=== PATIENT | female | born 1950 | race Caucasian/White ===

== ENCOUNTER 2020-10-28 10:49 | Outpatient (REF) | payer MEDICARE, SELFPAY ==
[2020-10-29 08:38] LABS: Lyme Abs Screen <0.90 index
== END 2020-10-28 10:50 | disposition home or self-care (01) ==
LOC: HO.MANLDS 10:49
PROVIDERS: PCP Physician Assistant; Visit Provider Physician Assistant
DX: T14.8XXA Other injury of unspecified body region, initial encounter (principal)
CPT/HCPCS: 86618

== ENCOUNTER 2021-06-10 13:54 | Outpatient (REF) | payer MEDICARE, SELFPAY ==
[2021-06-10 16:46] LABS: MANUAL DIFF FLAG NO
[2021-06-10 16:49] LABS: Basophils Percent Auto 0.3 % (0-2); Eosinophils Absolute Auto 0.2 X10*3/uL (0.0-0.4); Eosinophils Percent Auto 1.7 % (0-4); Hematocrit 39.7 % (37-47); Hemoglobin 13.2 g/dl (12.0-16.0); Imm Gran Abs Auto 0.01 X10*3/uL (0.00-0.03); Imm Gran Pct Auto 0.1 % (0.0-0.4); Lymphocytes Absolute Auto 2.8 X10*3/uL (1.2-4.9); Lymphocytes Percent Auto 32.5 % (20-40); Mean Corpuscular HGB Conc 33.2 g/dl (31.0-35.0); Mean Corpuscular Hemoglobin 30.7 pg (27.0-33.0); Mean Corpuscular Volume 92.3 fL (80-98); Mean Platelet Volume 11.4 fL (9.4-12.3); Monocytes Absolute Auto 0.7 X10*3/uL (0.1-1.2); Monocytes Percent Auto 8.1 % (2-11); Neutrophils Percent Auto 57.3 % (45-73); Platelet Count 240 X10*3/uL (160-400); Red Cell Distribution Width 13.1 % (11.0-16.0); White Blood Count 8.7 X10*3/uL (4.8-10.8)
[2021-06-10 16:57] LABS: Estimated Average Glucose 117 mg/dL; Hemoglobin A1c % 5.7 %
[2021-06-10 17:14] LABS: Alanine Aminotransferase 13 U/L (0-31); Alkaline Phosphatase 71 U/L (39-117); Anion Gap 14 (12-20); Aspartate Amino Transferase 17 U/L (5-31); Bilirubin Total 0.4 mg/dL (0.0-1.0); Blood Urea Nitrogen 20 mg/dL (9-16); Calcium 10.3 mg/dL (8.4-10.2); Carbon Dioxide 25 mmol/L (22-29); Chloride 108 mmol/L (96-108); Estimated Glomerular Filt Rate 44; Glucose Random 79 mg/dL (60-115); Potassium 4.5 mmol/L (3.3-5.1); Sodium 142 mmol/L (135-145); Total Protein 6.6 g/dL (6.5-8.0)
== END 2021-06-10 13:55 | disposition home or self-care (01) ==
LOC: HO.MANLDS 13:54
PROVIDERS: PCP Internal Medicine; Visit Provider Physician Assistant
DX: Z00.00 Encounter for general adult medical examination without abnormal findings (principal)
CPT/HCPCS: 36415; 80053; 83036; 85025

== ENCOUNTER 2021-07-07 16:06 | Outpatient (REF) | payer MEDICARE, SELFPAY | END 2021-07-07 16:07 | disposition home or self-care (01) | LOC: HO.MANLDS 16:06 | PROVIDERS: PCP Internal Medicine; Visit Provider Physician Assistant | DX: R30.0 Dysuria (principal) | CPT/HCPCS: 87086; 87088; 87186 ==

== ENCOUNTER 2021-08-06 14:32 | Outpatient (REF) | payer MEDICARE, SELFPAY | END 2021-08-06 14:33 | disposition home or self-care (01) | LOC: HO.MANLNP 14:32 | PROVIDERS: PCP Physician Assistant; Visit Provider Physician Assistant | DX: R30.0 Dysuria (principal) | CPT/HCPCS: 87086 ==

== ENCOUNTER 2022-07-01 09:42 | Outpatient (REF) | payer MEDICARE, SELFPAY ==
[2022-07-01 11:21] LABS: MANUAL DIFF FLAG NO
[2022-07-01 11:45] LABS: Basophils Percent Auto 0.5 % (0-2); Eosinophils Absolute Auto 0.2 X10*3/uL (0.0-0.4); Hematocrit 38.3 % (37.0-47.0); Hemoglobin 12.8 g/dl (12.0-16.0); Imm Gran Abs Auto 0.02 X10*3/uL (0.00-0.03); Imm Gran Pct Auto 0.3 % (0.0-0.4); Lymphocytes Absolute Auto 2.3 X10*3/uL (1.2-4.9); Lymphocytes Percent Auto 30.6 % (20-40); Mean Corpuscular HGB Conc 33.4 g/dl (31.0-35.0); Mean Corpuscular Hemoglobin 30.5 pg (27.0-33.0); Mean Corpuscular Volume 91.2 fL (80.0-98.0); Mean Platelet Volume 11.1 fL (9.4-12.3); Monocytes Absolute Auto 0.5 X10*3/uL (0.1-1.2); Monocytes Percent Auto 7.1 % (2-11); Neutrophils Absolute Auto 4.4 x10*3/uL (2.0-8.3); Neutrophils Percent Auto 59.5 % (45-73); Platelet Count 248 X10*3/uL (160-400); Red Cell Distribution Width 13.2 % (11.0-16.0); White Blood Count 7.5 X10*3/uL (4.8-10.8)
[2022-07-01 14:20] LABS: Free T4 (Free Thyroxine) 1.09 ng/dL (0.71-1.85); Thyroid Stimulating Hormone 1.16 uIU/mL (0.32-4.0)
[2022-07-01 14:33] LABS: Alanine Aminotransferase 16 U/L (0-31); Albumin Level 3.9 g/dL (3.5-5.0); Alkaline Phosphatase 60 U/L (39-117); Anion Gap 14 (12-20); Aspartate Amino Transferase 17 U/L (5-31); Bilirubin Total 0.6 mg/dL (0.0-1.0); Blood Urea Nitrogen 25 mg/dL (9-16); Calcium 9.7 mg/dL (8.4-10.2); Carbon Dioxide 23 mmol/L (22-29); Chloride 113 mmol/L (96-108); Cholesterol 214 mg/dL; Estimated Glomerular Filt Rate 40; Glucose Fasting 91 mg/dL (60-99); HDL Cholesterol 58 mg/dL; LDL Cholesterol Calculated 133 mg/dl; Potassium 4.5 mmol/L (3.3-5.1); Sodium 145 mmol/L (135-145); Total Protein 6.4 g/dL (6.5-8.0); Triglycerides 119 mg/dL
== END 2022-07-01 09:43 | disposition home or self-care (01) ==
LOC: HO.MANLDS 09:42
PROVIDERS: Visit Provider Physician Assistant
DX: Z00.00 Encounter for general adult medical examination without abnormal findings (principal)
CPT/HCPCS: 36415; 80053; 80061; 84439; 84443; 85025; 86900; 86901

== ENCOUNTER 2023-07-06 09:08 | Outpatient (REF) | payer MEDICARE, SELFPAY ==
[2023-07-06 13:18] LABS: MANUAL DIFF FLAG NO
[2023-07-06 13:55] LABS: Basophils Percent Auto 0.2 % (0-2); Eosinophils Absolute Auto 0.1 X10*3/uL (0.0-0.4); Eosinophils Percent Auto 1.4 % (0-4); Hematocrit 39.2 % (37.0-47.0); Imm Gran Abs Auto 0.04 X10*3/uL (0.00-0.03); Imm Gran Pct Auto 0.5 % (0.0-0.4); Lymphocytes Absolute Auto 2.4 X10*3/uL (1.2-4.9); Lymphocytes Percent Auto 27.7 % (20-40); Mean Corpuscular HGB Conc 33.2 g/dl (31.0-35.0); Mean Corpuscular Hemoglobin 30.7 pg (27.0-33.0); Mean Corpuscular Volume 92.5 fL (80.0-98.0); Mean Platelet Volume 11.2 fL (9.4-12.3); Monocytes Absolute Auto 0.8 X10*3/uL (0.1-1.2); Monocytes Percent Auto 8.8 % (2-11); Neutrophils Absolute Auto 5.3 x10*3/uL (2.0-8.3); Neutrophils Percent Auto 61.4 % (45-73); Platelet Count 276 X10*3/uL (160-400); Red Blood Count 4.24 X10*6/uL (4.20-5.50); Red Cell Distribution Width 13.1 % (11.0-16.0); White Blood Count 8.6 X10*3/uL (4.8-10.8)
[2023-07-06 14:35] LABS: Alanine Aminotransferase 17 U/L (0-31); Albumin Level 3.9 g/dL (3.5-5.0); Alkaline Phosphatase 52 U/L (39-117); Anion Gap 12 (12-20); Aspartate Amino Transferase 21 U/L (5-31); Bilirubin Total 0.6 mg/dL (0.0-1.0); Blood Urea Nitrogen 21 mg/dL (9-16); Calcium 10.4 mg/dL (8.4-10.2); Carbon Dioxide 25 mmol/L (22-29); Chloride 109 mmol/L (96-108); Cholesterol 180 mg/dL; Estimated Glomerular Filt Rate 43; Glucose Random 98 mg/dL (60-115); HDL Cholesterol 45 mg/dL; LDL Cholesterol Calculated 81 mg/dl; Potassium 4.2 mmol/L (3.3-5.1); Sodium 142 mmol/L (135-145); Total Protein 6.8 g/dL (6.5-8.0); Triglycerides 270 mg/dL
[2023-07-06 14:40] LABS: Free T4 (Free Thyroxine) 1.07 ng/dL (0.71-1.85)
== END 2023-07-06 09:09 | disposition home or self-care (01) ==
LOC: HO.MANLDS 09:08
PROVIDERS: Visit Provider Physician Assistant
DX: I10 Essential (primary) hypertension (principal); E78.2 Mixed hyperlipidemia; E03.9 Hypothyroidism, unspecified
CPT/HCPCS: 36415; 80053; 80061; 84439; 84443; 85025

== ENCOUNTER 2023-12-01 08:27 | Day surgery (SDC) | payer MEDICARE, SELFPAY ==
[2023-11-26 14:16] VITALS: BMI 27.8
--- NOTE | 2023-11-30 10:41 | P.CONAN_ITS ---
Documented by User: Orly Reed NP 11/30/23 10:42 HPI - Anesthesia Eval Consult details Narrative: 73yo F for Colonoscopy PMFSH Past Medical History Medical History Chronic kidney disease Asthma Thyroid disease Hyperlipidemia Renal artery stenosis HTN (hypertension) Surgical History Surgical History History of bladder suspension procedure History of repair of ACL H/O arthroscopy of left knee History of partial thyroidectomy Hx of tonsillectomy H/O colonoscopy Social History Social History Patient Tobacco Use Status: Former Tobacco user Quit Date: 2007 Tobacco use type: Cigarette Years Smoked: 40 Smoked in Last 30 Days: No Use of substances other than those prescribed or required for medical reasons: No Are you DNR?: No Advance Directives: No Advance Directives Information Provided: Yes Meds Allergies Allergy/AdvReac Type Severity Reaction Status Date / Time No Known Allergies Allergy Verified 12/01/23 08:52 Home Medications Medication Instructions Recorded Confirmed Last Taken Type cholecalciferol (vitamin D3) 25 25 mcg PO DAILY 11/26/23 11/26/23 Unknown History mcg (1,000 unit) tablet (Vitamin D3) hydrochlorothiazide 25 mg tablet 12.5 mg PO DAILY 11/26/23 12/01/23 11/29/23 History levothyroxine 50 mcg tablet 50 mcg PO DAILY 11/26/23 11/26/23 Unknown History simvastatin 40 mg tablet 40 mg PO DAILY 11/26/23 11/26/23 Unknown History valsartan 160 mg tablet 80 mg PO DAILY 11/26/23 12/01/23 11/29/23 History Metamucil 12/01/23 Unknown History Exam Height,Weight and Vital Signs: Height 5 ft 8 in Weight 83.007 kg Pertinent Lab Results Pertinent Lab Results: Laboratory Tests 07/06/23 09:13 WBC 8.6 Hgb 13.0 Hct 39.2 Plt Count 276 Sodium 142 Potassium 4.2 Chloride 109 H Carbon Dioxide 25 BUN 21 H Creatinine 1.23 Assessment and Plan Assessment Anesthesia Assessment: Chart Reviewed Documented by User: Rika Butler MD 12/01/23 10:28 [facility] Active Problems Active Problems: HTN Hypothyroidism CKD Asthma - rare use of inhaler about once a year Denies RADHA Hyperlipidemia Past Medical History Medical History Chronic kidney disease Asthma Thyroid disease Hyperlipidemia Renal artery stenosis HTN (hypertension) Family History Family history of problems with anesthesia: No Surgical History Surgical History History of bladder suspension procedure History of repair of ACL H/O arthroscopy of left knee History of partial thyroidectomy Hx of tonsillectomy H/O colonoscopy History of Problems with Anesthesia: No Social History Social History Patient Tobacco Use Status: Former Tobacco user Quit Date: 2007 Tobacco use type: Cigarette Years Smoked: 40 Smoked in Last 30 Days: No Use of substances other than those prescribed or required for medical reasons: No Are you DNR?: No Advance Directives: No Advance Directives Information Provided: Yes Meds Allergies Allergy/AdvReac Type Severity Reaction Status Date / Time No Known Allergies Allergy Verified 12/01/23 08:52 Home Medications Medication Instructions Recorded Confirmed Last Taken Type cholecalciferol (vitamin D3) 25 25 mcg PO DAILY 11/26/23 11/26/23 Unknown History mcg (1,000 unit) tablet (Vitamin D3) hydrochlorothiazide 25 mg tablet 12.5 mg PO DAILY 11/26/23 12/01/23 11/29/23 History levothyroxine 50 mcg tablet 50 mcg PO DAILY 11/26/23 11/26/23 Unknown History simvastatin 40 mg tablet 40 mg PO DAILY 11/26/23 11/26/23 Unknown History valsartan 160 mg tablet 80 mg PO DAILY 11/26/23 12/01/23 11/29/23 History Metamucil 12/01/23 Unknown History Exam Height,Weight and Vital Signs: Height 5 ft 8 in Weight 83.007 kg Vital Signs Temp Pulse Resp BP Pulse Ox O2 Del Method 12/01/23 08:58 97.5 F 83 16 146/73 H 98 Room Air Airway Mallampati Class: II TM Dist: >3cm Neck ROM: Full Partial: Lower Loose/Missing/Broken Teeth: Yes (Missing teeth top and bottom. Denies broken or loose teeth) Heart: RRR Lungs: CTAB Assessment and Plan Assessment Anesthesia Assessment: Anesthesia Plan Discussed Final Anesthetic Review Family History of Problems with Anesthesia: No History of Problems with Anesthesia: No NPO: Yes ASA Class: III Final Preanesthetic Review: No Changes in Pt Med Stat, Meds/Allgs Chart Reviewed, Consent Obtained/Reviewed and Anes Risks/Benef Reviewed Patient Risk: Low Procedure Risk: Low Assessment/Block/Sedation in SS: Assess/Block/Sedation-SS Anesthetic Plan Anesthetic Plan: TIVA Disposition: Standard PACU
[2023-12-01 08:58] VITALS: BP 146/73; PULSE 83; RESP 16; TEMP 36.4; O2SAT 98; BMI 27.2
[2023-12-01] MEDS: Sodium Phosphate,Mono-Dibasic 133 ML ENEMA PR (09:05)
[2023-12-01 10:29] VITALS: BP 100/50; PULSE 79; RESP 16; TEMP 36.2; O2SAT 95
--- NOTE | 2023-12-01 10:30 | PM.OP ---
Brief Operative Note Date of Service: 12/01/23 Pre-op diagnosis: Screening Post-op diagnosis: other (Diverticulosis) Procedure: Colonoscopy to the cecum Surgeon: Alfred Hale MD Anesthesia: MAC Was an Utility Manager used for this Procedure?: No Estimated blood loss (mL): 0 Pathology: none sent Condition: stable Disposition: PACU
[2023-12-01 10:44] VITALS: BP 123/74; PULSE 73; RESP 16; TEMP 36.8; O2SAT 98
--- NOTE | 2023-12-01 11:36 | OP_ITS ---
DATE OF SERVICE: 12/01/2023 SURGEON: Alfred Hale MD INDICATIONS: The patient presents for evaluation of colorectal cancer screening. Full consent has been obtained from her for this, including risks of bleeding and perforation. PREOPERATIVE DIAGNOSIS: Colorectal cancer screening. POSTOPERATIVE DIAGNOSIS: PROCEDURE PERFORMED: Colonoscopy to the cecum. ESTIMATED BLOOD LOSS: COMPLICATIONS: ANESTHESIA: Monitored anesthesia care. ASSISTANTS: SPECIMENS: POSTOPERATIVE DIAGNOSES: Colorectal cancer screening, diverticulosis, and internal hemorrhoids. DESCRIPTION OF PROCEDURE: The patient was placed in the left lateral decubitus position. The digital rectal exam revealed no abnormalities. The Olympus video pediatric colonoscope was entered into the rectum and advanced easily to the cecum. Once in the cecum, I did identify normal-appearing cecal pouch with appendiceal orifice and a normal-appearing ileocecal valve. There was transillumination of light deep in the right lower quadrant. The entire cecum and ileocecal valve appeared normal. The scope was slowly withdrawn assessing all mucosal surfaces carefully. Preparation was excellent. I did not visualize any sign of polyps, colitis, nor angiodysplasia. There was a moderate amount of diverticulosis. In the rectum, scope was retroflexed visualizing internal hemorrhoids, but no other pathology. The rectal mucosa appeared normal. The scope was straightened and withdrawn from the patient. She tolerated the procedure well and was returned to the recovery area in stable condition. IMPRESSION: 1. Diverticulosis. 2. Internal hemorrhoids. PLAN: Given the negative exam and negative family history, I do not think she would need any further screening colonoscopies given her age of 73. She will otherwise see me on a p.r.n. basis. This has been discussed with her . MD FARHAD Vargas/DIANA / [id number]
== END 2023-12-01 11:23 | disposition home or self-care (01) ==
PROVIDERS: PCP Internal Medicine; Visit Provider Internal Medicine
PROC: 0DJD8ZZ Inspection of Lower Intestinal Tract, Via Natural or Artificial Opening Endoscopic (ICD-10-PCS; CPT 45378; principal; 2023-12-01 09:30)
DX: Z12.11 Encounter for screening for malignant neoplasm of colon (principal); K57.30 Diverticulosis of large intestine without perforation or abscess without bleeding; K64.8 Other hemorrhoids; I12.9 Hypertensive chronic kidney disease with stage 1 through stage 4 chronic kidney disease, or unspecified chronic kidney disease; N18.30 Chronic kidney disease, stage 3 unspecified; I70.1 Atherosclerosis of renal artery; E03.9 Hypothyroidism, unspecified; J45.909 Unspecified asthma, uncomplicated; Z79.899 Other long term (current) drug therapy; Z87.891 Personal history of nicotine dependence; Z98.890 Other specified postprocedural states
CPT/HCPCS: G0121; J2704

== ENCOUNTER 2024-11-30 14:43 | Outpatient (REF) | payer OTHER, SELFPAY ==
[2024-11-30 15:10] LABS: MANUAL DIFF FLAG NO
[2024-11-30 15:42] LABS: Basophils Percent Auto 0.4 % (0-2); Eosinophils Absolute Auto 0.2 X10*3/uL (0.0-0.4); Eosinophils Percent Auto 1.6 % (0-4); Hematocrit 39.3 % (37.0-47.0); Imm Gran Abs Auto 0.03 X10*3/uL (0.00-0.03); Imm Gran Pct Auto 0.3 % (0.0-0.4); Lymphocytes Percent Auto 28.1 % (20-40); Mean Corpuscular HGB Conc 33.1 g/dl (31.0-35.0); Mean Corpuscular Hemoglobin 30.6 pg (27.0-33.0); Mean Corpuscular Volume 92.5 fL (80.0-98.0); Mean Platelet Volume 10.4 fL (9.4-12.3); Monocytes Absolute Auto 0.8 X10*3/uL (0.1-1.2); Monocytes Percent Auto 7.5 % (2-11); Neutrophils Absolute Auto 6.6 x10*3/uL (2.0-8.3); Neutrophils Percent Auto 62.1 % (45-73); Platelet Count 269 X10*3/uL (160-400); Red Blood Count 4.25 X10*6/uL (4.20-5.50); Red Cell Distribution Width 12.9 % (11.0-16.0); White Blood Count 10.6 X10*3/uL (4.8-10.8)
[2024-11-30 16:01] LABS: Appearance Urine Clear; Color Urine Yellow; Glucose Urine UA Negative (Negative); Leukocyte Esterase Urine Large (3+) (Negative); Nitrite Urine Negative (Negative); UMIC TRIGGER UA YES; Urine Blood Negative (Negative); Urine Ketones Negative (Negative); Urine Protein Negative (Neg-Trace)
[2024-11-30 16:04] LABS: Bacteria Urine 4+ (None Seen); Hyaline Casts Urine 0-2 /LPF (0-2); RBC Urine 0-2 /HPF (0-2); WBC Urine >50 /HPF (0-5)
[2024-11-30 16:30] LABS: Anion Gap 14 (12-20); Blood Urea Nitrogen 27 mg/dL (9-16); Calcium 10.5 mg/dL (8.4-10.2); Carbon Dioxide 26 mmol/L (22-29); Chloride 105 mmol/L (96-108); Estimated Glomerular Filt Rate 41; Magnesium 1.9 mg/dL (1.6-2.6); Phosphorus 3.6 mg/dL (2.7-4.5); Potassium 3.8 mmol/L (3.3-5.1); Sodium 141 mmol/L (135-145)
[2024-11-30 16:34] LABS: Parathyroid Hormone Intact 168.3 pg/mL (8.7-77.1)
[2024-11-30 16:35] LABS: Total Protein Urine Random < 7 mg/dL (<12)
== END 2024-11-30 14:44 | disposition home or self-care (01) ==
LOC: HO.LAB 14:43
PROVIDERS: PCP Internal Medicine; Visit Provider Internal Medicine Nephrology
DX: N18.31 Chronic kidney disease, stage 3a (principal); I10 Essential (primary) hypertension
CPT/HCPCS: 36415; 80051; 81001; 81003; 82040; 82043; 82306; 82310; 82565; 82570; 83735; 83970; 84100; 84156; 84520; 85025

== ENCOUNTER 2025-08-08 09:02 | Outpatient (REF) | payer MEDICARE, SELFPAY ==
--- OUTSIDE RECORDS SUMMARY | 2025-08-08 10:40 | XMS_ITS | Encounter Summary ---
Author Organization [facility] Address [address] [place] [address] [address] [address] Care Team Providers Care Sandfill Operator Name Role Phone Unavailable Primary Care Provider Unavailabl e Encounter Details Date Type Department Care Team (Latest Contact Info) Description 02/20/2021 Abstract [facility] CONVERSIONS Dental, Provider, DDS Social History Tobacco Use Types Packs/Day Years Used Date Smoking Tobacco: Never Assessed Comments Unknown Sex and Gender Information Value Date Recorded Sex Assigned at Female 11/24/2022 12:47 PM EST Legal Sex Female 5:36 PM EDT Gender Identity Female 11/24/2022 12:47 PM EST Sexual Orientation Don't know 12/01/2022 2: 29 PM EST documented as of this encounter Plan of Treatment Upcoming Encounters Date Type Department Care Team (Late st Contact Info) Description 08/21/2025 11:00 AM EDT Office Visit [facility] [address] [place] [address] Emilia Reagan documented as of this encounter Visit Diagnoses Not on filedocumented in this encounter
--- OUTSIDE RECORDS SUMMARY | 2025-08-08 10:40 | XMS_ITS | Encounter Summary ---
Author Organization [facility] Address [address] [facility] [address] [place] [address] Phone Care Team Providers Care Special Distribution Clerk Name Role Phone Chastity Pineda CNP Primary Care Provider Chastity Pineda CNP Unavailable Cj Arredondo DO Primary Care Provider Encounter Details Date Type Department Care Team (Late st Contact Info) Description 09/21/2018 Ancillary Orders Virtual Department [address] [place] [address] Chastity Pineda CNP [address] [place], [place] [id number] [email or web address] Right arm pain Social History Tobacco Use Types Packs/Day Years Used Date Smoking Tobacco: Never Assessed Comments Unknown Sex and Gender Information Value Date Recorded Sex Assigned at Female 01/06/2022 10:13 AM EST Legal Sex Female 10:03 PM EDT Gender Identity Female 01/06/2022 10:13 AM EST Sexual Orientation Not on file documented as of this encounter Plan of Treatment Not on file documented as of this encounter Results * XR CERVICAL SPINE 6 0R MORE VIEWS (09/22/2018 10:08 AM EDT) Anatomical Region Laterality Modality C-spine Radiographic Joana ging 09/22/2018 11:4 9 AM EDT Impressions 09/22/2018 1:02 PM EDT Multilevel bony degenerative changes. Grade 1 spondylolisthesis at C3-4 with minimal motion. Grade 1 spondylosis these is also present at C7-T1 without motion. Moderate right neural foraminal encroachment at C2-3. Nonspecific sclerotic changes within the mandible. Recommend further evaluation with CT. POS - [id number] Edited by: Gypsy Sweeney on 09/22/2018 12:29 PM Narrative 09/22/2018 1:02 PM EDT HISTORY: Right arm pain COMPARISON: None FINDINGS: AP, lateral views obtained in neutral, flexion, and extension position, bilateral obliques, and odontoid views were performed. Cervical spine is visualized to the upper aspect of T1 on lateral projection. Straightening of the cervical lordosis and mild levoscoliosis. Vertebral body heights are maintained. Intervertebral disc spaces are preserved. Multilevel facet arthropathy greater along the right side. Endplate spurring from C4 through C6. 3 mm of anterolisthesis of C7 on T1 which has stable position with flexion and extension. At C3-4, 2 mm of anterolisthesis in neutral position, 4 mm with flexion, and resolution with extension. On the right, moderate neural foraminal encroachment at C2-3. No significant neural foraminal encroachment apparent on the left. Atlantoaxial distance is within normal limits. No abnormal thickening of the prevertebral soft tissues. Coarse calcifications in the left mid neck may be related to carotid vasculature. Lobular sclerotic changes within the right mandibular body and symphysis of uncertain etiology, potentially related to dental changes. Further evaluation recommended. Procedure Note Sam Car MD - 09/22/2018 HISTORY: Right arm pain COMPARISON: None FINDINGS: AP, lateral views obtained in neutral, flexion, and extension position,bilateral obliques, and odontoid views were performed. Cervical spine is visualized to the upper aspect of T1 on lateralprojection. Straightening of the cervical lordosis and mildlevoscoliosis. Vertebral body heights are maintained. Intervertebral disc spaces are preserved. Multilevel facet arthropathygreater along the right side. Endplate spurring from C4 through C6. 3 mm of anterolisthesis of C7 on T1 which has stable position with flexionand extension. At C3-4, 2 mm of anterolisthesis in neutral position, 4 mmwith flexion, and resolution with extension. On the right, moderate neural foraminal encroachment at C2-3. Nosignificant neural foraminal encroachment apparent on the left.Atlantoaxial distance is within normal limits. No abnormal thickening of the prevertebral soft tissues. Coarsecalcifications in the left mid neck may be related to carotidvasculature. Lobular sclerotic changes within the right mandibular body and symphysisof uncertain etiology, potentially related to dental changes. Furtherevaluation recommended. IMPRESSION: Multilevel bony degenerative changes. Grade 1 spondylolisthesis at C3-4 with minimal motion. Grade 1spondylosis these is also present at C7-T1 without motion. Moderate right neural foraminal encroachment at C2-3. Nonspecific sclerotic changes within the mandible. Recommend furtherevaluation with CT. POS - [id number] Edited by: Gypsy Sweeney on 09/22/2018 12:29 PM Chastity Pineda CNP IMG XR SPINE Final Resul t documented in this encounter Visit Diagnoses Diagnosis Right arm pain Pain in soft tissues of limb Right arm pain Pain in soft tissues of limb documented in this encounter Care Teams Special Distribution Clerk Relationship Specialty Start Date End Date Chastity Pineda CNP PCP - General Family Medicine 09/22/18 06/06/19 Cj Arredondo DO PCP - General Internal Medicine 06/07/19 Chastity Pineda CNP Family Medicine 06/07/19 documented as of this encounter Additional Source Comments The information contained in this document represents components of the legal health record. It is not the complete legal health record.[facility]
--- OUTSIDE RECORDS SUMMARY | 2025-08-08 10:40 | XMS_ITS | Encounter Summary ---
Author Organization [facility] Address [address] [facility] [address] [place] [address] Phone Care Team Providers Care Web Master Name Role Phone Chastity Pineda CNP Primary Care Provider [phone] Chastity Pienda CNP Unavailable [phone] Cj Arredondo DO Primary Care Provider [phone] Reason for Referral * Physical Therapy (Routine) - Closed Specialty Diagnoses / Procedures Referred By Mily hunt Referred To Contact Physical Therapy Diagnoses Encounter for rehabilitation Zahida Downing PA-C Phone: tel: fax: [address] [address] Phone: tel: Referral ID Status Reason Start Date Expiration Date Visits Re quested Visits Authorized [id number] Closed 06/20/2019 11/28/2019 12 12 Encounter Details Date Type Department Care Team (Latest Contact Info) Description 05/29/2019 Transcribe Orders [facility] [address] [place] [address] Chastity Pineda CNP [address] [place] [address] [email or web address] Encounter for rehabilitation (Primary Dx) Social History Tobacco Use Types Packs/Day Years Used Date Smoking Tobacco: Never Assessed Comments Unknown Sex and Gender Information Value Date Recorded Sex Assigned at Female 01/06/2022 10:13 AM EST Legal Sex Female 10:03 PM EDT Gender Identity Female 01/06/2022 10:13 AM EST Sexual Orientation Not on file documented as of this encounter Plan of Treatment Scheduled Referrals Name Type Priority Associated Diagnoses Orde r Schedule Ambulatory referral to [facility] Physical Therapy Outpatient Referral Routine Encounter for rehabilitation Ordered: 05/29/2019 documented as of this encounter Visit Diagnoses Diagnosis Encounter for rehabilitation- Primary documented in this encounter Care Teams Web Master Relationship Specialty Start Date End Date Chastity Pineda CNP PCP - General Family Medicine 09/22/18 06/06/19 Cj Arredondo DO PCP - General Internal Medicine 06/07/19 Chastity Pineda CNP Family Medicine 06/07/19 documented as of this encounter Additional Source Comments The information contained in this document represents components of the legal health record. It is not the complete legal health record.[facility]
--- OUTSIDE RECORDS SUMMARY | 2025-08-08 10:40 | XMS_ITS | Encounter Summary ---
Author Organization [facility] Address [address] [facility] [address] [place] [address] Phone Care Team Providers Care Manager Oracle Database Name Role Phone Chastity Pineda CNP Primary Care Provider Chastity Pineda CNP Unavailable Cj Arredondo DO Primary Care Provider [phone] Encounter Details Date Type Department Care Team (Late st Contact Info) Description 09/21/2018 Ancillary Orders Virtual Department [address] [place] [address] Chastity Pineda CNP 12 [place], [place] [id number] [email or web address] Right arm pain Social History Tobacco Use [...] as of this encounter Results * XR Humerus (Right) (09/22/2018 10:10 AM EDT) Anatomical Region Laterality Modality Arm Right Radiographic Joana ging 09/22/2018 11:4 7 AM EDT Impressions 09/22/2018 11:49 AM EDT No acute bony abnormality. Degenerative changes at the acromioclavicular and glenohumeral joints. POS - [id number] Narrative 09/22/2018 11:49 AM EDT HISTORY: Right arm pain COMPARISON: None FINDINGS: AP and lateral views of the right humerus were performed. No evidence of an acute fracture or malalignment. Moderate degenerative changes at the acromioclavicular joint and milder at the glenohumeral joint. No destructive bone lesion. Procedure Note Sam Car MD - 09/22/2018 HISTORY: Right arm pain COMPARISON: None FINDINGS: AP and lateral views of the right humerus were performed. No evidence of an acute fracture or malalignment. Moderate degenerativechanges at the acromioclavicular joint and milder at the glenohumeraljoint. No destructive bone lesion. IMPRESSION: No acute bony abnormality. Degenerative changes at the acromioclavicularand glenohumeral joints. POS - [id number] Chastity Pineda CNP IMG XR UPPER EXTREMITY Julita l Result documented in this encounter Visit Diagnoses Diagnosis Right arm pain Pain in soft tissues of limb Right arm pain Pain in soft tissues of limb documented in this encounter Care Teams Manager Oracle Database Relationship Specialty Start Date End Date Chastity Pineda CNP PCP - General Family Medicine 09/22/18 06/06/19 Cj Arredondo DO PCP - General Internal Medicine 06/07/19 Chastity Pineda CNP Family Medicine 06/07/19 documented as of this encounter Additional Source Comments The information contained in this document represents components of the legal health record. It is not the complete legal health record.[facility]
--- OUTSIDE RECORDS SUMMARY | 2025-08-08 10:40 | XMS_ITS | Encounter Summary ---
Author Organization [facility] Address [address] [facility] [address] [place] [address] Phone Care Team Providers Care Evaporative Cooler Installer Name Role Phone Chastity Pineda CNP Primary Care Provider [phone] Chastity Pineda RECOVERY COLLECTOR Unavailable [phone] Cj Arredondo DO Primary Care Provider Encounter Details Date Type Department Care Team (Latest Contact Info) Description 09/22/2018 Transcribe Orders [facility] [address] [place] [address] Chastity Pineda CNP [address] [place], [place] [phone] [email or web address] Chronic kidney disease, unspecified CKD stage (Primary Dx); Dizziness and giddiness; Myxedema heart disease; Pure hypercholesterolemia Social History Tobacco Use Types Packs/Day Years [...] documented as of this encounter Results * Sedimentation rate (ESR) (09/22/2018 9:21 AM EDT) ESR 4 0 - 30 mm/h [facility] Blood 09/22/2018 9:21 AM EDT 09/22/2018 9:23 AM EDT Chastity Pineda [facility] LAB BLOOD ORDERABLES Final Result [address] [address] * (ABNORMAL) 25-OH vitamin D (09/22/2018 9:21 AM EDT) 25 OH VIT D (TOTAL) >60(H) 30 - 60 ng/mL [facility] Blood 09/22/2018 9:21 AM EDT 09/22/2018 9:23 AM EDT Chastity Miriam [facility] LAB BLOOD ORDERABLES Final Result Performing Organization Address City/[facility]/ZIP Co de Phone Number [address] [address] * (ABNORMAL) Comprehensive metabolic panel (09/22/2018 9:21 AM EDT) SODIUM 144 133 - 146 mmol/L [facility] POTASSIUM 4.6 3.3 - 5.1 mmol/L [facility] CHLORIDE 105 96 - 108 mmol/L [facility] CO2 26 21 - 35 mmol/L [facility] BUN 21(H) 6 - 19 mg/dL [facility] CREATININE 1.20 0.5 - 1.5 mg/dL [facility] GLUCOSE 98 70 - 99 mg/dL [facility] ALBUMIN 4.5 3.9 - 4.8 g/dL [facility] TOTAL PROTEIN 7.1 6.5 - 8.0 g/dL [facility] CALCIUM 9.8 8.4 - 10.3 mg/dL [facility] ALKALINE PHOSPHATASE 69 39 - 117 U/L [facility] TOTAL BILIRUBIN 0.6 0.0 - 1.2 mg/dL [facility] AST 20 0 - 37 U/L [facility] ALT 18 0 - 40 U/L [facility] GLOBULIN 2.6 1 - 4.8 g/dL [facility] EGFR 46(L) >59 mL/min/1.7 3m2 [facility] Comment:If patient is black, multiply result by 1.159. Estimated glomerular filtration rate calculated using the CKD-EPI equation. ANION GAP 18 10 - 20 mmol/L [facility] Blood 09/22/2018 9:21 AM EDT 09/22/2018 9:23 AM EDT us [employer] RECOVERY COLLECTOR LAB BLOOD ORDERABLES Final Result [address] [address] * Free T4 (09/22/2018 9:21 AM EDT) FREE T4 1.5 0.9 - 1.7 ng/dL [facility] Blood 09/22/2018 9:21 AM EDT 09/22/2018 9:23 AM EDT us [facility] LAB BLOOD ORDERABLES Final Result Performing Organization Address [facility]/ZIP Co de Phone Number [address] [address] * TSH (09/22/2018 9:21 AM EDT) TSH 1.29 0.27 - 4.20 uIU/mL [facility] Blood 09/22/2018 9:21 AM EDT 09/22/2018 9:23 AM EDT [facility] LAB BLOOD ORDERABLES Final Result Performing Organization Address [facility]/ZIP Co de Phone Number [address] [address] * (ABNORMAL) Lipid panel (09/22/2018 9:21 AM EDT) HDL 65 mg/dL [facility] Comment: Interpretation: Risk Level Females Decreased >55mg/dL Average 50-55 mg/dL Increased <50 mg/dL CHOLESTEROL 198 0 - 240 mg/dL [facility] TRIGLYCERIDES 156 30 - 160 mg/dL [facility] LDL 102 50 - 129 mg/dL [facility] Comment: LDL levels in terms of risk for coronary heart disease: <100 mg/dL: Optimal 100-129 mg/dL: Near or above optimal 130-159 mg/dL: Borderline high 160-189 mg/dL: High >190 mg/dL: Very High CARDIAC RISK RATIO 3.0(L) 3.3 - 4.4 C [facility] Blood 09/22/2018 9:21 AM EDT 09/22/2018 9:23 AM EDT us Chastity Pineda CNP LAB BLOOD ORDERABLES Final Result Performing Organization Address City/[facility]/[place] Co de Phone Number [facility] [address] [place] [address] * CBC (09/22/2018 9:21 AM EDT) WBC 9.56 3.40 - 11.20 K/uL [facility] RBC 4.65 3.80 - 4.80 M/uL [facility] HGB 13.8 12.0 - 15.0 g/dL [facility] HCT 42.4 36.0 - 46.0 % [facility] PLT 310 130 - 400 K/uL [facility] MCV 91.2 79.0 - 98.0 fL [facility] MCH 29.7 27.0 - 34.8 pg [facility] MCHC 32.5 31.5 - 36.0 g/dL [facility] RDW 13.0 10.8 - 14.6 % [facility] MPV 11.0 9.4 - 12.4 fl [facility] NRBC 0.00 /100 WBCs [facility] ABSOLUTE NRBC 0.00 K/uL [facility] Blood 09/22/2018 9:21 AM EDT 09/22/2018 9:23 AM EDT us Chastity Pineda CNP LAB BLOOD ORDERABLES Final Result [facility] [address] [place] [address] documented in this encounter Visit Diagnoses Diagnosis Chronic kidney disease, unspecified CKD stage- Primary Dizziness and giddiness Myxedema heart disease Unspecified hypothyroidism Pure hypercholesterolemia documented in this encounter Care Teams Evaporative Cooler Installer Relationship Specialty Start Date End Date Chastity Pineda CNP [email or web address] PCP - General Family Medicine 09/22/18 06/06/19 Cj Arredondo DO PCP - General Internal Medicine 06/07/19 Chastity Pineda CNP [email or web address] Family Medicine 06/07/19 documented as of this encounter Additional Source Comments The information contained in this document represents components of the legal health record. It is not the complete legal health record.[facility]
--- OUTSIDE RECORDS SUMMARY | 2025-08-08 10:40 | XMS_ITS | Encounter Summary ---
Author Organization [facility] Address [address] [facility] [address] [place] [address] Phone Care Team Providers Care Trauma Surgeon Name Role Phone Chastity Pineda CNP Primary Care Provider Chastity Pineda CNP Unavailable Cj Arredondo DO Primary Care Provider [phone] Encounter Details Date Type Department Care Team (Late st Contact Info) Description 09/23/2018 Ancillary Orders Virtual Department [address] [place] [address] Chastity Pineda CNP [address] [place] [address] Spondylolisthesis, unspecified spinal region Social History Tobacco Use Types Packs/Day Years [...] on file documented as of this encounter Visit Diagnoses Diagnosis Spondylolisthesis, unspecified spinal region documented in this encounter Care Teams Trauma Surgeon Relationship Specialty Start Date End Date Chastity Pineda CNP PCP - General Family Medicine 09/22/18 06/06/19 Cj Arredondo DO [email or web address] PCP - General Internal Medicine 06/07/19 Chastity Pineda CNP [email or web address] Family Medicine 06/07/19 documented as of this encounter Additional Source Comments The information contained in this document represents components of the legal health record. It is not the complete legal health record.[facility]
--- OUTSIDE RECORDS SUMMARY | 2025-08-08 10:40 | XMS_ITS | Encounter Summary ---
Author Organization [facility] Address [address] [facility] [address] [place] [address] Phone Care Team Providers Care Deputy Bailiff Name Role Phone Chastity Pineda DRAINLAYER Unavailable [phone] Cj Arredondo DO Primary Care Provider [phone] Reason for Referral * Outpatient Procedure - Closed Specialty Diagnoses / Procedures Referred By Mily hunt Referred To Contact Diagnoses Dizziness and giddiness Lightheadedness Procedures Adult Echo TTE Zahida Downing PA-C Phone: tel: fax: Referral ID Status Reason Start Date Expiration Date Visits Re quested Visits Authorized [id number] Closed 01/05/2020 01/04/2021 1 1 Encounter Details Date Type Department Care Team (Latest Contact Info) Description 01/05/2020 Transcribe Orders Virtual Department [address] [place] [address] Zahida Downing PA-C [address] [place] [address] Dizziness and giddiness (Primary Dx); Lightheadedness Social History Tobacco Use Types Packs/Day Years Used Date Smoking Tobacco: Former Smokeless Tobacco: Never Alcohol Use Standard Drinks/Week Comments Not Currently 0 (1 standard drink = 0.6 oz pur e alcohol) Comments No Sex and Gender Information Value Date Recorded Sex Assigned at Female 01/06/2022 10:13 AM EST Legal Sex Female 10:03 PM EDT Gender Identity Female 01/06/2022 10:13 AM EST Sexual Orientation Not on file documented as of this encounter Plan of Treatment Not on file documented as of this encounter Results * US Carotid Duplex Complete (Bilateral) (01/25/2020 1:46 PM EST) Anatomical Region Laterality Modality Heart, Thoracic Vasculature, Neck Ultrasound 01/25/2020 2:28 PM EST Impressions 01/25/2020 2:35 PM EST RIGHT: Less than 50% stenosis of the right internal carotid artery. Antegrade right vertebral artery. LEFT: Less than 50% stenosis of the left internal carotid artery. Antegrade left vertebral artery. POS [id number] Narrative 01/25/2020 2:35 PM EST History: Dizziness. Technique: B-MODE, color, and spectral imaging were performed bilaterally. ICA stenoses based primarily on velocity measurements and correlate with NASCET diameter stenosis measures, where the reference diameter is taken distally. Velocities measured as peak systolic velocities (cm/s). Comparison: None. Findings: RIGHT CAROTID: There is moderate mixed echogenicity atherosclerotic plaque in the bulb with hypoechoic plaque partially into the proximal internal carotid artery. CCA: Proximal 74.5 cm/s; Distal 87.9cm/s. ICA: Proximal 56.2 cm/s; Middle 59.7 cm/s; Distal 77.4 cm/s. ECA: 92 cm/s. Vertebral artery: antegrade. Peak ICA/CCA Ratio: 0.89. LEFT CAROTID: There is focal echogenic plaque in the bulb and proximal ICA. Mixed echogenicity plaque seen in the mid common carotid artery. CCA: Proximal 108 cm/s; Distal 87.4cm/s ICA: Proximal 71.1 cm/s; Middle 97.3 cm/s; Distal 85.6 cm/s. ECA: 88.5 cm/s. Vertebral artery: antegrade. Peak ICA/CCA Ratio: . Procedure Note José Miguel Ty MD - 01/25/2020 History: Dizziness. Technique: B-MODE, color, and spectral imaging were performed bilaterally.ICA stenoses based primarily on velocity measurements and correlate withNASCET diameter stenosis measures, where the reference diameter is takendistally. Velocities measured as peak systolic velocities (cm/s). Comparison: None. Findings: RIGHT CAROTID: There is moderate mixed echogenicity atherosclerotic plaque in the bulbwith hypoechoic plaque partially into the proximal internal carotidartery. CCA: Proximal 74.5 cm/s; Distal 87.9cm/s. ICA: Proximal 56.2 cm/s; Middle 59.7 cm/s; Distal 77.4 cm/s. ECA: 92 cm/s. Vertebral artery: antegrade. Peak ICA/CCA Ratio: 0.89. LEFT CAROTID: There is focal echogenic plaque in the bulb and proximal ICA. Mixedechogenicity plaque seen in the mid common carotid artery. CCA: Proximal 108 cm/s; Distal 87.4cm/s ICA: Proximal 71.1 cm/s; Middle 97.3 cm/s; Distal 85.6 cm/s. ECA: 88.5 cm/s. Vertebral artery: antegrade. Peak ICA/CCA Ratio: . IMPRESSION: RIGHT: Less than 50% stenosis of the right internal carotid artery. Antegrade right vertebral artery. LEFT: Less than 50% stenosis of the left internal carotid artery. Antegrade left vertebral artery. POS [id number] us Zahida Salina VELOZ CV US NEUROVASCULAR Final Re sult * TTE COMPREHENSIVE (01/25/2020 1:14 PM EST) Body Surface Area 1.9 m2 Height 170 m Weight 82 kg Systolic BP 139 mmHg Diastolic BP 74 mmHg Left Atrium Dimension Anterior-Posterior 27 15 - 40 mm Aortic Valve Peak Velocity 117.0 cm/s Aortic Valve Peak Gradient 5.00 mmHg Aortic Sinus Diameter 29 mm Ascending Aorta Diameter 33 mm Inferior Vena Cava Diameter 12 0.0 - 21 mm Interventricular Septum Thickness 11 mm Left Ventricle Internal Diameter End Diastole 39 37 - 52 mm Left Ventricle Internal Diameter End Systole 28 22 - 35 mm Left Ventricular Outflow Tract Diameter 18.0 mm LVOT VTI REST 212.00 mm Left Ventricular Outflow Tract Velocity 1.0 m/s Left Ventricular Outflow Tract Gradient at Rest 4.00 mmHg Left Ventricular Posterior Wall Thickness 10 mm Ejection Fraction 65 50 - 75 Percent Mitral Valve A Wave Speed 78.8 cm/s Mitral Valve E Wave Speed 53.1 cm/s Right Ventricle Basal Diameter 23.90 25 - 41 mm Tricuspid Valve Peak Velocity 1.3 m/s Raw LV EF% 48 % Left Atrial Volume 37 mL Left Atrial Volume Index 19.47 mL/m2 Right Ventricle Peak Systolic Pressure 10 mmHg Right Atrium Pressure Estimated 3 mmHg Right Ventricle to Right Atrium Pressure Gradient 7 mmHg Aortic Valve Sinus Index 1 15 19 - 27 mm Ascending Aorta Diameter 17 mm Aortic Sinus Index 15 mm Ascending Aorta Index 17 mm Anatomical Region Laterality Modality Heart Ultrasound Narrative 01/25/2020 1:43 PM EST Borderline LVH with normal LV systolic function EF 65%. Normal diastolic function. Grossly normal valve structure function. Left Ventricle Left ventricular cavity size is normal and the left ventricular wall thickness is increased. There is borderline concentric left ventricular hypertrophy. Left ventricular systolic function is normal. There are no segmental left ventricular wall motion abnormalities noted. The estimated ejection fraction is 65% (Normal 50- 75%). The left ventricular ejection fraction was measured by the single dimension method. Left ventricular diastolic function appears within normal limits for age. There is no evidence of left ventricular thrombus. Right Ventricle The right ventricular size is normal. The right ventricular systolic function is normal. Left Atrium The left atrium is normal in size. The left atrial anterior-posterior dimension measures 27 mm (normal 15-40 mm). The LA volume is 37 mL. The LA volume index is 19.47 mL/m2 (normal indexed value is 16-34 mL/m2). The pulmonary venous flow profiles are normal. Right Atrium The right atrium is normal in size. The IVC is normal in size (2.1cm or less). The IVC measures 12 mm (normal <=21 mm). The IVC demonstrates normal collapse with inspiration which is consistent with normal RA pressure. Mitral Valve The mitral valve appears normal. The E/A ratio is 0.7. The Med E' Valentin is 6.1 cm/s and the Lat E' Valentin is 7.7 cm/s. The E/E' AVG is 7.7. There is no evidence of mitral stenosis. There is trace mitral regurgitation detected by spectral and color Doppler. Tricuspid Valve The tricuspid valve appears normal. There is no evidence of tricuspid stenosis. There is evidence of trace tricuspid regurgitation by color and spectral Doppler. Normal pulmonary pressure. The RV systolic pressure was estimated from the peak TV regurgitant velocity. The estimated RV systolic pressure is 10 mmHg assuming a right atrial pressure of 3 mmHg. Aortic Valve The aortic valve appears normal. The aortic valve is tricuspid. There is no evidence of valvular aortic stenosis. The peak aortic valve gradient is 5 mmHg. There is no evidence of aortic regurgitation by color and spectral Doppler. The visualized portions of the thoracic aorta appear normal. Descending thoracic aorta is not well visualized. Pulmonic Valve Pulmonary valve was not well visualized. The pulmonary valve appears normal. There is no evidence of pulmonic stenosis. There is no evidence of pulmonary regurgitation by color and spectral Doppler. Pericardium There is no evidence of pericardial effusion. There no evidence of a pleural effusion. Interatrial Septum The interatrial septum appears normal. Interventricular Septum Interventricular septal motion appears normal. General Findings The image quality was good (2). Technique(s) used in the evaluation: Color flow Doppler and Spectral Doppler. The predominant rhythm during the study was sinus. Comparison Findings No prior studies for comparison. February Salina VELOZ CV ECHO ORDERABLES Final Res ult documented in this encounter Visit Diagnoses Diagnosis Dizziness and giddiness- Primary Lightheadedness Dizziness and giddiness Dizziness and giddiness Lightheadedness Dizziness and giddiness Dizziness and giddiness Lightheadedness Dizziness and giddiness documented in this encounter Care Teams Deputy Bailiff Relationship Specialty Start Date End Date Cj Arredondo DO PCP - General Internal Medicine 06/07/19 Chastity Pineda CNP Family Medicine 06/07/19 documented as of this encounter Additional Source Comments The information contained in this document represents components of the legal health record. It is not the complete legal health record.[facility]
--- OUTSIDE RECORDS SUMMARY | 2025-08-08 10:40 | XMS_ITS | Encounter Summary ---
Author Organization [employer] Address [address] [place] [address] [address], [place] [address] Care Team Providers Care Mounter Automatic Name Role Phone Unavailable Primary Care Provider Unavailabl e Encounter Details Date Type Department Care Team (Latest Contact Info) Description 04/27/2019 Abstract [facility] CONVERSIONS Dental, Provider, DDS Social [...] Description 08/21/2025 11:00 AM EDT Office Visit [place] [facility] [address] [place] [address] Emilia Reagan documented as of this encounter Visit Diagnoses Not on filedocumented in this encounter
--- OUTSIDE RECORDS SUMMARY | 2025-08-08 10:40 | XMS_ITS | Clinical Summary ---
Author Organization [facility] Address [address] [address] Phone Care Team Providers Care Golf Sales Associate Name Role Phone Cj Arredondo DO Primary Care Provider [phone] Allergies No known active allergies Medications simvastatin (ZOCOR) 40 MG tablet Take 1 tablet by mouth 1 (one) time each day Active psyllium (METAMUCIL) 0.52 g capsule Take 3 capsules by mouth 1 (one) time each day Active loratadine (CLARITIN) 10 MG tablet Take 1 tablet by mouth 1 (one) time each day Active levothyroxine (SYNTHROID, LEVOTHROID) 50 MCG tablet Take 1 tablet by mouth 1 (one) time each day Active cholecalcifero l (VITAMIN D-3 SUPER STRENGTH) 50 MCG (2000 UT) tablet Take 1 tablet by mouth 1 (one) time each day Active hydroCHLOROthi azide 25 MG tablet TAKE 0.5 TABLETS BY MOUTH 1 TIME EACH DAY. 45 tablet 3 5 Active valsartan (DIOVAN) 160 MG tablet TAKE 1 TABLET BY MOUTH 1 TIME EACH DAY. 90 tablet 3 5 Active valsartan (DIOVAN) 160 MG tablet Take 1 tablet (160 mg total) by mouth 1 (one) time each day 90 tablet 3 4 025 Discontinued Active Problems Problem Noted Date Diagnosed Date Stage 3a chronic kidney disease 09/30/2021 Chronic kidney disease stage 3 09/29/2021 Essential hypertension 09/29/2021 Hyperlipidemia 09/29/2021 Hypertensive chronic kidney disease, unspecified, with chronic kidney disease stage I through stage IV, or unspecified 09/29/2021 Hypothyroidism 09/29/2021 Encounters Date Type Department Care Team Description 07/24/2025 Refill [facility] [address] [phone] Jagdeep Prater MD from Last 3 Months Immunizations Immunization Administration Dates Next Due Influenza (IM) Preservative Free 10/26/2015 Influenza Split High Dose Pr eservative Free IM 09/03/2019,11/12/2018,10/12/2017 Influenza Vaccine, Quadrivalent, Adjuvanted 07/31 Influenza, Unspecified 08/10/2021,11/29/2014 Pfizer SARS-COV-2 02/16/2021,01/26/2021 Pneumococcal Polysaccharide 05/29/2019 Tdap 05/29/2019 Zoster 11/14/2015,11/29/2014 Family History Medical History Relation Comments Stroke Father Dementia Mother Hypertension Sibling sisters Relation Status Comments Father Mother Sibling Social History Tobacco Use Types Packs/Day Years Used Date Smoking Tobacco: Former Cigarettes Q uit: 10/01/2008 Comments:Smoking History Inf o:Every day Alcohol Use Standard Drinks/Week Comments No 0 (1 standard drink = 0.6 oz pur e alcohol) Comments Unknown Sex and Gender Information Value Date Recorded Sex Assigned at Not on file Legal Sex Female 4:59 PM EST Gender Identity Not on file Sexual Orientation Not on file Last Filed Vital Signs Vital Sign Reading Time Taken Comments Blood Pressure 118/82 11/30/2024 2:05 PM EST Pulse 80 11/30/2024 2:05 PM EST Temperature - - Respiratory Rate - - Oxygen Saturation 97% 11/30/2024 2:05 PM EST Inhaled Oxygen Concentration - - Weight 83 kg (183 lb) 11/30/2024 2:05 PM EST Height 170.2 cm (5' 7 ) 10/01/2020 12:00 PM EST Body Mass Index 28.66 10/01/2020 12:00 PM EST Plan of Treatment Upcoming Encounters Date Type Department Care Team (Late st Contact Info) Description 12/03/2025 2:30 PM EST Office Visit [facility] [address] [place] [address] Jagdeep Prater MD [address] [facility] [address] [place] [address] Health Maintenance Due Date Last Done Comments Breast Cancer Screening 1950 Colorectal Cancer Screening: Annual FOBT 1999 Colorectal Cancer Screening: Colonoscopy 1999 Colorectal Cancer Screening: Sigmoidoscopy 1999 Influenza Vaccine (#1) 2025 4, 08/10/2021, 08/06/2021, Additional history exists Pneumococcal Vaccine: 50+ Years Completed 05/29/2019, 03/29/2014, 09/29/2007 Pneumococcal Vaccine: Peds (0 to 5 Years) and At-Risk Patients (6 to 49 Years) Discontinued 05/29/2019, 03/29/2014, 09/29/2007 Hepatitis B Vaccine Aged Out No longe r eligible based on patient's age to complete this topic Insurance Medicare Care Teams Golf Sales Associate Relationship Specialty Start Date End Date Cj Arredondo DO [address] [place] [address] PCP - General Internal Medicine 06/17/21
--- OUTSIDE RECORDS SUMMARY | 2025-08-08 10:40 | XMS_ITS | Encounter Summary ---
Author Organization [facility] Address [address] [place] [address], [place] [address] Care Team Providers Care Seo Marketing Specialist Name Role Phone Unavailable Primary Care Provider Unavailabl e Encounter Details Date Type Department Care Team (Latest Contact Info) Description 08/28/2021 Abstract [facility] CONVERSIONS Dental, Provider, DDS Social [...] Description 08/21/2025 11:00 AM EDT Office Visit [place] [facility] [address] [place] [address] Emilia Reagan documented as of this encounter Visit Diagnoses Not on filedocumented in this encounter
--- OUTSIDE RECORDS SUMMARY | 2025-08-08 10:40 | XMS_ITS | Encounter Summary ---
Author Organization [facility] Address [address] [facility] [address] [place] [address] Phone Care Team Providers Care Nematology Teacher Name Role Phone Chastity Pineda CNP Primary Care Provider [phone] Chastity Pineda CNP Unavailable [phone] Cj Arredondo DO Primary Care Provider [phone] Encounter Details Date Type Department Care Team (Latest Contact Info) Description 05/29/2019 Ancillary Orders Virtual Department [address] [place] [address] Zahida Downing, ROSELIA [address] [place] [address] Visit for screening mammogram; Screening for osteoporosis Social History Tobacco Use Types Packs/Day Years [...] documented as of this encounter Results * BD DXA AXIAL (SPINE) WITH HIP (10/18/2019 11:24 AM EST) Anatomical Region Laterality Modality Bone Density Bone Density 10/18/2019 11:5 8 AM EST Impressions 10/18/2019 11:59 AM EST Findings consistent with osteopenia as demonstrated in the right hip. POS -[id number] Narrative 10/18/2019 11:59 AM EST This is a 69-year-old postmenopausal female presenting for baseline exam. Evaluation of the lumbar spine and both hips is obtained and appears technically adequate. The lumbar spine from L1 through L4 discloses a total bone mineral density of 1.021 g/cm2 with a T-score of -0.2. This is in the normal range. The right hip has a total bone mineral density of 0.810 g/cm2 with a T-score of -1.1. Z score 0.4. This is in the osteopenia range. The left hip has a total bone mineral density of 0.866 g/cm2 for a T-score of - 0.6. This is in the normal range. Lateral instant vertebral imaging is not performed. Procedure Note Moris Green MD - 10/18/2019 This is a 69-year-old postmenopausal female presenting for baselineexam. Evaluation of the lumbar spine and both hips is obtained and appearstechnically adequate. The lumbar spine from L1 through L4 discloses a total bone mineral densityof 1.021 g/cm2 with a T-score of -0.2. This is in the normal range. The right hip has a total bone mineral density of 0.810 g/cm2 with aT-score of - 1.1. Z score 0.4. This is in the osteopenia range. The left hip has a total bone mineral density of 0.866 g/cm2 for a T-scoreof - 0.6. This is in the normal range. Lateral instant vertebral imaging is not performed. IMPRESSION: Findings consistent with osteopenia as demonstrated in the right hip. POS -[id number] Zahida Salina VELOZ IMG BD BONE DENSITY DEXA Fin al Result * BI MAMMOGRAM SCREENING WITH TOMOSYNTHESIS WITH CAD (BILATERAL) (10/18/2019 11:15 AM EST) Anatomical Region Laterality Modality Breast Left, Breast Right, Breast Bilateral Bila teral Mammography 10/18/2019 6:42 PM EST Impressions 10/18/2019 6:45 PM EST BILATERAL BREASTS: Negative, no evidence of malignancy. Normal interval follow- up is recommended in 12 months. Bi-RADS: BI-RADS CATEGORY: 1 - Negative. DENSITY: There are scattered fibroglandular densities. POS - [id number] Narrative 10/18/2019 6:45 PM EST STUDY: Bilateral screening mammography with tomosynthesis and CAD TECHNIQUE: Bilateral full-field digital screening mammography is obtained and read in conjunction with computer-aided detection. Tomosynthesis as well as 2-D C view imaging were obtained. COMPARISON: Comparison made to September 13, 2017 BREAST COMPOSITION: There are scattered areas of fibroglandular density BILATERAL BREASTS: No significant masses, calcifications or other abnormalities are seen. Procedure Note Mitch Flores MD - 10/18/2019 STUDY: Bilateral screening mammography with tomosynthesis and CAD TECHNIQUE: Bilateral full-field digital screening mammography is obtainedand read in conjunction with computer-aided detection. Tomosynthesis aswell as 2-D C view imaging were obtained. COMPARISON: Comparison made to September 13, 2017 BREAST COMPOSITION: There are scattered areas of fibroglandulardensity BILATERAL BREASTS: No significant masses, calcifications or otherabnormalities are seen. IMPRESSION: BILATERAL BREASTS: Negative, no evidence of malignancy. Normal intervalfollow-up is recommended in 12 months. Bi-RADS: BI-RADS CATEGORY: 1 - Negative. DENSITY: There are scattered fibroglandular densities. POS - [id number] February Salina VELOZ IMG MG EXAMS Final Result documented in this encounter Visit Diagnoses Diagnosis Visit for screening mammogram Screening for osteoporosis Special screening for osteoporosis Visit for screening mammogram Screening for osteoporosis Special screening for osteoporosis documented in this encounter Care Teams Nematology Teacher Relationship Specialty Start Date End Date Chastity Pineda CNP PCP - General Family Medicine 09/22/18 06/06/19 Cj Arredondo DO [email or web address] PCP - General Internal Medicine 06/07/19 Chastity Pineda CNP [email or web address] Medicine 06/07/19 documented as of this encounter Additional Source Comments The information contained in this document represents components of the legal health record. It is not the complete legal health record.[facility]
--- OUTSIDE RECORDS SUMMARY | 2025-08-08 10:40 | XMS_ITS | Patient Health Record ---
Author Organization [facility] Address [address] [place] [address] Care Team Providers Care Small Stock Facer Name Role Phone Cj Arredondo Primary Care Provider Alfred Amaral [phone] Allergies No Known Allergies Reason For Referral No Information Medications Medication SIG (Take, Route, Frequency, Duration) Notes Start Date End Date Status Simvastatin 40 MG 1 tablet in the evening Orally Once a day Active Lisinopril 40mg Not- Taking Valsartan 80 MG as directed Orally Active hydroCHLOROthiazide 12.5 MG 1 capsule in the morning Orally Once a day for 30 day(s) Active Fiber Adult Gummies 2 GM as directed Orally Active Vitamin D3 1000iu Ac tive Levothyroxine Sodium 50mg Active Immunizations Vaccine Route Administration Date Status Comme nts Influenza Unknown 09/29/2023 Administered Problems Problem Type SNOMED Code ICD Code Onset Dates Problem Status W/U Status Risk Notes Problem 377222465 Colon cancer screening (Z12.11) Active confirmed Problem Diverticular disease of colon (708716681) Diverticulosis of large intestine without perforation or abscess without bleeding (K57.30) Active confirmed Problem 308100430068436 Preprocedural examination (Z01.818) Active confirmed Plan Of Treatment Pending Test Test Name Order Date ENDOMYSIAL IGA 12/20/2012 TRANSGLUTAMINASE AB IGA 12/20/2012 TRANSGLUTAMINASE AB IGG 12/20/2012 Future Test Test Name Order Date COLONOSCOPY 12/20/2012 COLONOSCOPY 10/07/2023 Insurance Providers Payer Name Payer Address Payer Phone Subscriber Number Group Number Insured Name Patient Relationship to Insured Coverage Start Date Coverage End Date [facility] [address] [place], [place] [id number] [phone] [id number] NARA POLI Self - patient is the insured Medical (General) History Medical History History ICD Code Hypertension--renal artery stenosis Denies VT,DM, and CVA Hyperlipidemia Hypothyroidism Asthma-very mild Chronic kidney disease stage 3 -sees Dr. Prater Colonoscopy 2012 with a hype rplastic polyp, biopsies negative for microscopic colitis Surgical History Surgery Date(Month/Year) tonsillectomy partial thyroidectomy left knee arthroscopy bladder suspension knee acl repair
--- OUTSIDE RECORDS SUMMARY | 2025-08-08 10:40 | XMS_ITS | Encounter Summary ---
Author Organization Formerly [facility] Address [address] [place] [address] Phone Care Team Providers Care Outreach Librarian Name Role Phone Chastity Pineda REFRIGERATION TECHNICIAN Unavailable [phone] Cj Arredondo DO Primary Care Provider [phone] Encounter Details Date Type Department Care Team (Late st Contact Info) Description 01/16/2021 Procedure Pass OR Admitting Dept - Virtual Department [address] [place] [address] Social History Tobacco Use Types Packs/Day Years Used Date Smoking Tobacco: Former Cigarettes 1.5 40 1 968 - 2008 Smokeless Tobacco: Never Alcohol Use Standard Drinks/Week [...] Diagnoses Not on filedocumented in this encounter Care Teams Outreach Librarian Relationship Specialty Start Date End Date Cj Arredondo DO PCP - General Internal Medicine 06/07/19 Chastity Pineda CNP Family Medicine 06/07/19 documented as of this encounter Additional Source Comments The information contained in this document represents components of the legal health record. It is not the complete legal health record.[facility]
--- OUTSIDE RECORDS SUMMARY | 2025-08-08 10:40 | XMS_ITS | Encounter Summary ---
Author Organization [facility] Address [address] [place] [address] Phone Care Team Providers Care Supervisor Bottle Machines Name Role Phone Chastity Pineda CNP Primary Care Provider Chastity Pineda CNP Unavailable [phone] Cj Arredondo DO Primary Care Provider [phone] Encounter Details Date Type Department Care Team (Late st Contact Info) Description 06/02/2019 Ancillary Orders [facility],Outside Imaging [address] [place], [place] [id number] System, Provider Not In, PhD [address] [address] Social History Tobacco Use Types Packs/Day Years [...] documented as of this encounter Results * Mammogram Outside (No Interpretation) (09/13/2017 12:00 AM EDT) Narrative SYSTEMGENERATED, DOCUMENTATION - 06/02/2019 8:56 AM EDT This study is for PACS storage only and not for interpretation. us Provider Not In System PhD IMG OUTSIDE IMAGING W /OUT INTERPRETATION Final Result documented in this encounter Visit Diagnoses Not on filedocumented in this encounter Care Teams Supervisor Bottle Machines Relationship Specialty Start Date End Date Chastity Pineda CNP [email or web address] PCP - General Family Medicine 09/22/18 06/06/19 Cj Arredondo DO [email or web address] PCP - General Internal Medicine 06/07/19 Chastity Pineda CNP [email or web address] Family Medicine 06/07/19 documented as of this encounter Additional Source Comments The information contained in this document represents components of the legal health record. It is not the complete legal health record.[facility]
--- OUTSIDE RECORDS SUMMARY | 2025-08-08 10:41 | XMS_ITS | Clinical Summary ---
Author Organization [facility] Address [address] [place] [address] Phone Care Team Providers Care Manager R D Name Role Phone Chastity Pineda FASHION STYLING INTERN Unavailable [phone] Cj Arredondo DO Primary Care Provider [phone] Allergies No known active allergies Medications cholecalciferol (VITAMIN D3) 2,000 unit capsule Take by mouth daily. Active simvastatin (ZOCOR) 40 MG tablet Take 40 mg by mouth nightly at bedtime. Active levothyroxine (SYNTHROID, LEVOTHROID) 50 MCG tablet Take 50 mcg by mouth every morning. Active hydroCHLOROthia zide (HYDRODIURIL) 25 MG tablet Take 12.5 mg by mouth daily. 12/25/2021 Active methylcellulose (CITRUCEL) oral powder Take 2 g by mouth daily. Active valsartan (DIOVAN) 160 MG tablet Take 160 mg by mouth daily. Active Active Problems Problem Noted Date Diagnosed Date Essential hypertension 09/29/2021 Hyperlipidemia 09/29/2021 Hypothyroidism 09/29/2021 Unspecified hypertensive kid janice disease with chronic kidney disease stage I through stage IV, or unspecified 09/29/2021 Stage 3 chronic kidney disease 09/29/2021 Rectocele 12/19/2019 Overview (12/19/2019): +3 with valsalva, having issues with obstipation and then soiling Immunizations Immunization Administration Dates Next Due COVID-19 (Pre-09/20) Pfizer Vaccine, mRNA, PF 02/16/2021,01/26/2021 INFLUENZA, SPLIT VIRUS, TRIVALENT PF 10/26/2015 Influenza High-Dose Quadriva lent Preservative Free IM 08/10/2021 Influenza High-Dose Trivalen t Preservative Free IM 09/03/2019,11/12/2018,10/12/2017 Influenza Quadrivalent Adjuv anted Preservative Free IM 08/25/2020 Influenza, Unspecified Formulation 11/29/2014 Pneumococcal polysaccharide PPSV23 05/29/2019 Tdap 05/29/2019 Zoster live 11/14/2015,11/29/2014 Family History Medical History Relation Comments Stroke Father Alzheimer's disease Mother Hypertension Sister 1 Hypertension Sister 2 Hypertension Sister 3 Relation Status Comments Father Mother Sister 1 Alive Sister 2 Alive Sister 3 Alive Social History Tobacco Use Types Packs/Day Years Used Date Smoking Tobacco: Former Cigarettes 1.5 40 1 968 - 2008 Smokeless Tobacco: Never Tobacco Cessation:Counseling Given: Not Answered Alcohol Use Standard Drinks/Week Comments Not Currently 0 (1 standard drink = 0.6 oz pur e alcohol) Education Answer Date Recorded Are you interested in more education? Not on kristie e 03/26/2023 Are you concerned about learning? Not on file 03/26/2023 No 03/26/2023 No 03/26/2023 Digital Access Answer Date Recorded No 04/24/2023 No 04/24/2023 Reliable internet access at home? Not on file 04/24/2023 Device with a working camera? Not on file Comments No Sex and Gender Information Value Date Recorded Sex Assigned at Female 01/06/2022 10:13 AM EST Legal Sex Female 10:03 PM EDT Gender Identity Female 01/06/2022 10:13 AM EST Sexual Orientation Not on file Last Filed Vital Signs Vital Sign Reading Time Taken Comments Blood Pressure 148/95 01/06/2022 12:38 PM EST Pulse 69 01/06/2022 12:38 PM EST Temperature 36.7 C (98.1 F) 01/06/2022 12:38 PM EST Respiratory Rate 18 01/06/2022 12:38 PM EST Oxygen Saturation 99% 01/06/2022 12:38 PM EST Inhaled Oxygen Concentration - - Weight 81.9 kg (180 lb 9.6 oz) 02/16/2024 2:03 P M EDT Height 170.2 cm (5' 7 ) 02/16/2024 2:03 PM EDT Body Mass Index 28.29 02/16/2024 2:03 PM EDT Plan of Treatment Health Maintenance Due Date Last Done Comments BLOOD PRESSURE 1950 DEPRESSION SCREENING 1962 SMOKING Hx and SMOKELESS TOBACCO SCREENING 1963 HEPATITIS C SCREENING 1968 COLOGUARD 1995 COLONOSCOPY 1995 COLORECTAL CANCER SCREENING 1995 FIT TEST 1995 FOBT 1995 SIGMOIDOSCOPY 1995 VIRTUAL COLONOSCOPY 1995 ZOSTER VACCINES (2 of 3) 01/09/2016 11/14/2015, 11/2014 PNEUMOCOCCAL VACCINES (50+ years) (2 of 2 - PCV) 05/29/2020 05/29/2019 RSV VACCINE (1 - 1-dose 75+ series) 2025 CREATININE LEVEL 06/21/2025 06/21/2024, 05/2023, 01/06/2022, Additional history exists POTASSIUM LEVEL 06/21/2025 06/21/2024, 05/2023, 01/06/2022, Additional history exists TSH LEVEL 06/21/2025 06/21/2024, 11/29, 06/07/2019, Additional history exists INFLUENZA VACCINE (#1) 2025 , 08/25/2020, 09/03/2019, Additional history exists COVID-19 VACCINE ( season) 2025 09/03/2021, 02/16/2021, 01/26/2021 Adult Td,Tdap Booster 05/29/2029 05/29/2019 LIPID PANEL 06/21/2029 06/21/2024, 11/29, 06/07/2019, Additional history exists OSTEOPOROSIS SCREENING INITIAL (ONE-TIME) Completed 10/18/2019 HEPATITIS A VACCINES Aged Out No long er eligible based on patient's age to complete this topic HIB VACCINES Aged Out No longer eligi ble based on patient's age to complete this topic MENINGOCOCCAL VACCINES (ACWY) Aged Out No longer eligible based on patient's age to complete this topic MENINGOCOCCAL VACCINES (B) Aged Out N o longer eligible based on patient's age to complete this topic Medical Devices Not on file Procedures Procedure Name Priority Date/Time Associated Diagnosis Comments LIPID PANEL Routine 06/21/2024 9:50 AM EDT Diabetes mellitus screening Adult general medical exam Hypothyroidism, unspecified type Mixed hyperlipidemia TSH Routine 06/21/2024 9:50 AM EDT Diabetes mellitus screening Adult general medical exam Hypothyroidism, unspecified type Mixed hyperlipidemia COMPREHENSIVE METABOLIC PANEL Routine 06/21/2024 9:50 AM EDT Diabetes mellitus screening Adult general medical exam Hypothyroidism, unspecified type Mixed hyperlipidemia BD DXA AXIAL (SPINE) WITH HIP Routine 10/18/2019 11:24 AM EST Screening for osteoporosis from Last 3 Months or Most Recently Relevant to Health Maintenance Results * (ABNORMAL) Comprehensive metabolic panel (06/21/2024 9:50 AM EDT) SODIUM 142 133 - 146 mmol/L [facility] POTASSIUM 4.2 3.3 - 5.1 mmol/L [facility] CHLORIDE 106 96 - 108 mmol/L [facility] CO2 25 21 - 35 mmol/L [facility] BUN 28(H) 6 - 19 mg/dL [facility] CREATININE 1.10 0.5 - 1.5 mg/dL [facility] GLUCOSE 95 70 - 99 mg/dL [facility] ALBUMIN 4.0 3.9 - 4.8 g/dL [facility] TOTAL PROTEIN 7.1 6.5 - 8.0 g/dL [facility] CALCIUM 10.4(H) 8.4 - 10.3 mg/dL [facility] ALKALINE PHOSPHATASE 73 39 - 117 U/L [facility] TOTAL BILIRUBIN 0.5 0.0 - 1.2 mg/dL [facility] AST 18 0 - 37 U/L [facility] ALT 15 0 - 40 U/L [facility] GLOBULIN 3.1 1 - 4.8 g/dL [facility] EGFR 53(L) >59 mL/min/1.7 3m2 [facility] Comment:Estimated glomerular filtration rate calculated using the CKD-EPI refit equation. ANION GAP 15 10 - 20 mmol/L [facility] Blood 06/21/2024 9:50 AM EDT 06/21/2024 9:54 AM EDT Dorothy HDZ LAB BLOOD ORDERABLES Final Result Performing Organization Address City/[facility]/ZIP Co de Phone Number [address] [address] * TSH (06/21/2024 9:50 AM EDT) TSH 0.76 0.27 - 4.20 uIU/mL [facility] Blood 06/21/2024 9:50 AM EDT 06/21/2024 9:54 AM EDT Dorothy HDZ LAB BLOOD ORDERABLES Final Result Performing Organization Address [facility] de Phone Number [address] [address] * (ABNORMAL) Lipid panel (06/21/2024 9:50 AM EDT) HDL 77 mg/dL [facility] Comment: Interpretation <40 mg/dL: Low HDL cholesterol (major risk factor for CHD) Greater than or equal to 60 mg/dL: High HDL cholesterol ( negative risk factor for CHD) HDL - cholesterol is affected by a number of factors, e.g. smoking, excerise, hormones, sex and age. CHOLESTEROL 206 0 - 240 mg/dL [facility] TRIGLYCERIDES 99 30 - 160 mg/dL [facility] LDL 109 50 - 129 mg/dL [facility] Comment: LDL levels in terms of risk for coronary heart disease: <100 mg/dL: Optimal 100-129 mg/dL: Near or above optimal 130-159 mg/dL: Borderline high 160-189 mg/dL: High >190 mg/dL: Very High CARDIAC RISK RATIO 2.7(L) 3.3 - 4.4 C [facility] Blood 06/21/2024 9:50 AM EDT 06/21/2024 9:54 AM EDT us Dorothy HDZ LAB BLOOD ORDERABLES Final Result [facility] [address] [place] [address] * BD DXA AXIAL (SPINE) WITH HIP [...] demonstrated in the right hip. POS -[id number] February Salina PARadha IMG BD BONE DENSITY DEXA Fin al Result from Last 3 Months or Most Recently Relevant to Health Maintenance [place] [id number] [place] MEDICARE P[place] BLUE REPLACEMENT MEDICARE PART A & B MEDICARE PPO BLUE REPLACEMENT MEDICARE PART A & B MEDICARE PPO BLUE REPLACEMENT MEDICARE PART A & B Member Subscriber Plan / Payer ( fective 2015-Present) Name:Connie Hernandez Member ID:[id number] Relation to Subscriber:Self Name:Connie Hernandez Subscriber ID:[id number] Payer ID:[id number] Group ID:Not on file Type:Medicare Address: [employer] [address] MEDICARE PPO BLUE REPLACEMENT MEDICARE PART A & B MEDICARE PPO BLUE REPLACEMENT MEDICARE PART A & B Member Subscriber Plan / Payer ( fective 2015-Present) Name:Connie Hernandez Member ID:[id number] Relation to Subscriber:Self Name:Connie Hernandez Subscriber ID:[id number] Payer ID:[id number] Group ID:Not on file Type:Medicare Address: [employer] [address] MEDICARE PPO BLUE REPLACEMENT MEDICARE PART A & B Member Subscriber Plan / Payer ( fective 2015-Present) Name:David Connie Member ID:[id number] Relation to Subscriber:Self Name:DavidConnie Subscriber ID:[id number] Payer ID:[id number] Group ID:Not on file Type:Medicare Address: [employer] [address] MEDICARE PPO BLUE REPLACEMENT MEDICARE PART A & B MEDICARE PPO BLUE REPLACEMENT MEDICARE PART A & B [id number] [place] [address] MEDICARE PPO BLUE REPLACEMENT Advance Directives For more information, please contact: [phone] (9AM - 5PM [facility], Wednesday-Wednesday) Documents on File Type Date Recorded Patient Photoengraver Expl anation Healthcare Proxy 01/13/2021 [place] [facility] re Proxy * Full Code (Latest Code Status on File) Date Activated Date Inactivated Comments 01/16/2021 9:11 AM Question Answer Comments Code Status Confirmed With: Patient Care Teams Manager R D Relationship Specialty Start Date End Date Cj Arredondo DO PCP - General Internal Medicine 06/07/19 Chastity Pineda CNP Family Medicine 06/07/19 Additional Source Comments The information contained in this document represents components of the legal health record. It is not the complete legal health record.[facility]
--- OUTSIDE RECORDS SUMMARY | 2025-08-08 10:41 | XMS_ITS | Clinical Summary ---
Author Organization [employer] Address [address] [place] [address] [address] [place] [address] Care Team Providers Care Director Of Category Management Name Role Phone Unavailable Primary Care Provider Unavailabl e Allergies No known active allergies Medications hydroCHLOROthia zide (HYDRODiuril) 25 MG tablet TAKE 0.5 TABLETS BY MOUTH 1 TIME EACH DAY. 09/08/2022 Active lisinopril 40 MG tablet Take 40 mg by mouth in the morning. Active simvastatin (Zocor) 40 MG tablet Take 40 mg by mouth in the morning. 09/08/2022 Active levothyroxine (Synthroid, Levoxyl) 50 MCG tablet Take 50 mcg by mouth in the morning. 09/08/2022 Active valsartan (Diovan) 160 MG tablet Take 1 tablet by mouth Once per day. Active Social History Tobacco Use Types Packs/Day Years Used Date Smoking Tobacco: Never Assessed Comments Unknown Sex and Gender Information Value Date Recorded Sex Assigned at Female 11/24/2022 12:47 PM EST Legal Sex Female 5:36 PM EDT Gender Identity Female 11/24/2022 12:47 PM EST Sexual Orientation Don't know 12/01/2022 2: 29 PM EST Plan of Treatment Upcoming Encounters Date Type Department Care Team (Late st Contact Info) Description 08/21/2025 11:00 AM EDT Office Visit [facility] DENTAL [address] [place], [place] [id number] Emilia Reagan Health Maintenance Due Date Last Done Comments CT Colonography 1950 Colonoscopy 1950 Colorectal Cancer Screening 1950 Depression Screening 1950 FIT DNA/Cologuard 1950 FIT 1950 FOBT 1950 Lipid Panel 1950 SDOH Screening 1950 Sigmoidoscopy 1950 Alcohol/Substance Use Screening 1962 Tobacco Screening 1962 Hepatitis C Screening 1968 Zoster Vaccines (2 of 3) 01/09/2016 015, 10/29/2015, 11/29/2014 RSV Patients and Patients Aged 60 years or older (1 - 1-dose 75+ series) 2025 Dental X-Ray: Bitewings 07/12/2025 07/11/20 24, 12/21/2023, 12/01/2022, Additional history exists COVID-19 Vaccine ( season) 2025 09/03/2021, 02/16/2021, 01/26/2021 Influenza Vaccine (#1) 2025 , 07/11/2022, 08/10/2021, Additional history exists Dental Oral Exam 08/19/2025 02/15/2025, , 12/21/2023, Additional history exists Dental Prophylaxis 08/19/2025 02/15/2025, 0 07/11/2024, 12/21/2023, Additional history exists Dental X-Ray: Full Mouth 07/12/2027 07/11/2024, 05/30 DTaP/Tdap/Td Vaccines (2 - Td or Tdap) 05/29/2029 05/29/2019 Pneumococcal Vaccine: 50+ Years Completed 05/29/2019, 03/29/2014, 09/29/2007 HIB Vaccines Aged Out No longer eligi ble based on patient's age to complete this topic HPV Vaccines Aged Out No longer eligi ble based on patient's age to complete this topic Hepatitis A Vaccines Aged Out No long er eligible based on patient's age to complete this topic Hepatitis B Vaccines Aged Out No long er eligible based on patient's age to complete this topic IPV Vaccines Aged Out No longer eligi ble based on patient's age to complete this topic Meningococcal B Vaccine Aged Out No l onger eligible based on patient's age to complete this topic Meningococcal Vaccine Aged Out No donis fran eligible based on patient's age to complete this topic RSV under 20 months Aged Out No longe r eligible based on patient's age to complete this topic Rotavirus Vaccines Aged Out No longer eligible based on patient's age to complete this topic Procedures Procedure Name Priority Date/Time Associated Diagnosis Comments Full PROPHYLAXIS - ADULT Routine 025 11:00 AM EDT PERIODIC ORAL EVALUATION - ESTABLISHED PATIENT Routine 02/15/2025 11:00 AM EDT INTRAORAL - COMPLETE SERIES OF RADIOGRAPHIC IMAGES Routine 07/11/2024 11:00 AM EDT from Last 3 Months or Most Recently Relevant to Health Maintenance Insurance [facility] - [facility] PPO
--- OUTSIDE RECORDS SUMMARY | 2025-08-08 10:41 | XMS_ITS | Encounter Summary ---
Author Organization [facility] Address [address] [place] [address] Phone Care Team Providers Care Paper Bags Sewing Machine Operator Name Role Phone Chastity Pineda CLINICAL APPLICATIONS MANAGER Unavailable [phone] Cj Arredondo DO Primary Care Provider [phone] Encounter Details Date Type Department Care Team (Late st Contact Info) Description 01/31/2024 Ancillary Orders [facility] [address] [place] [address] Dorothy Espinosa PA [address] [place] [address] [place] [address] Right knee pain, unspecified chronicity (Primary Dx) Social History Tobacco Use Types [...] as of this encounter Results * XR KNEE 4 OR MORE VIEWS (RIGHT) (01/31/2024 11:35 AM EST) Anatomical Region Laterality Modality Knee Right Computed Radiogr aphy 02/01/2024 1:19 AM EST Impressions 02/01/2024 1:21 AM EST Mild tricompartmental osteoarthritis. Chondrocalcinosis of the medial and lateral compartments. Narrative 02/01/2024 1:21 AM EST XR KNEE 4 OR MORE VIEWS (RIGHT) Referring clinician's provided indication for this examination in Epic: Pain COMPARISON: None FINDINGS: Knee joint space narrowing with subchondral sclerosis and marginal osteophytes is mild in all 3 compartments. Quadriceps enthesopathy is at the superior patellar pole. Patellar enthesopathy at the tibial tubercle. No acute fracture or dislocation. Bones demineralized. Soft tissue mineralization at the medial and lateral cartilage. Procedure Note Sonia Allan MD - 02/01/2024 XR KNEE 4 OR MORE VIEWS (RIGHT) Referring clinician's provided indication for this examination in Epic:Pain COMPARISON: None FINDINGS: Knee joint space narrowing with subchondral sclerosis and marginalosteophytes is mild in all 3 compartments. Quadriceps enthesopathy is atthe superior patellar pole. Patellar enthesopathy at the tibial tubercle.No acute fracture or dislocation. Bones demineralized. Soft tissuemineralization at the medial and lateral cartilage. IMPRESSION: Mild tricompartmental osteoarthritis. Chondrocalcinosis of the medial and lateral compartments. Dorothy HDZ IMG XR LOWER EXTREMITY Julita l Result documented in this encounter Visit Diagnoses Diagnosis Right knee pain, unspecified chronicity- Primary Right knee pain, unspecified chronicity documented in this encounter Care Teams Paper Bags Sewing Machine Operator Relationship Specialty Start Date End Date Cj Arredondo DO [email or web address] PCP - General Internal Medicine 06/07/19 Chastity Pineda CNP [email or web address] Family Medicine 06/07/19 documented as of this encounter Additional Source Comments The information contained in this document represents components of the legal health record. It is not the complete legal health record.[facility]
--- OUTSIDE RECORDS SUMMARY | 2025-08-08 10:41 | XMS_ITS | Encounter Summary ---
Author Organization [facility] Address [address] [place] [address] Phone Care Team Providers Care Director Social Service Name Role Phone Chastity Pineda CALENDER WIND UP TENDER Unavailable [phone] Cj Arredondo DO Primary Care Provider [phone] Encounter Details Date Type Department Care Team (Latest Contact Info) Description 06/09/2019 Transcribe Orders [facility] Laboratory [address] [place] [address] Zahida Downing PA-C [address] [place] [address] Leukocytosis, unspecified type (Primary Dx) Social History Tobacco Use Types [...] documented as of this encounter Results * (ABNORMAL) CBC and differential (06/09/2019 2:31 PM EDT) WBC 10.16 3.40 - 11.20 K/uL [facility] RBC 4.06 3.80 - 4.80 M/uL [facility] HGB 12.4 12.0 - 15.0 g/dL [facility] HCT 36.4 36.0 - 46.0 % [facility] PLT 287 130 - 400 K/uL [facility] MCV 89.7 79.0 - 98.0 fL [facility] MCH 30.5 27.0 - 34.8 pg [facility] MCHC 34.1 31.5 - 36.0 g/dL [facility] RDW 13.2 10.8 - 14.6 % [facility] MPV 11.0 9.4 - 12.4 fl [facility] NRBC 0.00 0.00 /100 WBCs [facility] ABSOLUTE NRBC 0.00 0.00 K/uL [facility] DIFF METHOD Auto [facility] NEUTS 54.0 45.30 - 77.70 % [facility] LYMPHS 31.4 12.30 - 39.70 % [facility] MONOS 7.5 4.10 - 12.80 % [facility] EOS 6.4 0 - 7.2 % [facility] BASOS 0.3 0 - 2.80 % [facility] Granulocytes, immature (%) 0.4 0.0 - 0.9 % [facility] ABSOLUTE NEUTS 5.49 1.40 - 7.70 K/uL [facility] ABSOLUTE LYMPHS 3.19 0.60 - 3.20 K/uL [facility] ABSOLUTE MONOS 0.76(H) 0.11 - 0.59 K/uL [facility] ABSOLUTE EOS 0.65(H) 0.01 - 0.50 K/uL [facility] ABSOLUTE BASOS 0.03 0.00 - 0.08 K/uL [facility] Granulocytes, immature 0.04 0.00 - 0.05 K/uL [facility] Blood 06/09/2019 2:31 PM EDT 06/09/2019 2:34 PM EDT us February Salina VELOZ LAB BLOOD ORDERABLES Final R esult [facility] [address] [place] [address] documented in this encounter Visit Diagnoses Diagnosis Leukocytosis, unspecified type- Primary documented in this encounter Care Teams Director Social Service Relationship Specialty Start Date End Date Cj Arredondo DO [email or web address] PCP - General Internal Medicine 06/07/19 Chastity Pineda CNP [email or web address] Family Medicine 06/07/19 documented as of this encounter Additional Source Comments The information contained in this document represents components of the legal health record. It is not the complete legal health record.[facility]
--- OUTSIDE RECORDS SUMMARY | 2025-08-08 10:41 | XMS_ITS | Encounter Summary ---
Author Organization [facility] Address [address] [place] [address] Phone Care Team Providers Care Heat Curer Name Role Phone Chastity Pienda [employer] PHOTOGRAPHER Unavailable [phone] Cj Arredondo DO Primary Care Provider [phone] Encounter Details Date Type Department Care Team (Late st Contact Info) Description 01/31/2024 Ancillary Orders [facility], X-Ray - [address] [place] [address] Dorothy Espinosa PA [address] [place] [address] [place] [address] Acute pain of right knee (Primary Dx) Social History Tobacco Use Types [...] as of this encounter Visit Diagnoses Diagnosis Acute pain of right knee- Primary documented in this encounter Care Teams Heat Curer Relationship Specialty Start Date End Date Cj Arredondo DO PCP - General Internal Medicine 06/07/19 Chastity Pineda CNP Family Medicine 06/07/19 documented as of this encounter Additional Source Comments The information contained in this document represents components of the legal health record. It is not the complete legal health record.[facility]
[2025-08-08 14:00] LABS: MANUAL DIFF FLAG NO
[2025-08-08 14:07] LABS: Hematocrit 37.5 % (37.0-47.0); Hemoglobin 13.0 g/dl (12.0-16.0); Imm Gran Abs Auto 0.02 X10*3/uL (0.00-0.03); Imm Gran Pct Auto 0.2 % (0.0-0.4); Lymphocytes Absolute Auto 2.2 X10*3/uL (1.2-4.9); Mean Corpuscular HGB Conc 34.7 g/dl (31.0-35.0); Mean Corpuscular Hemoglobin 30.9 pg (27.0-33.0); Mean Corpuscular Volume 89.1 fL (80.0-98.0); NRBC Abs Auto 0.000 X10*3/uL (0.0-0.012); NRBC Pct Auto 0.0 /100WBC (0.0-0.2); Platelet Count 264 X10*3/uL (160-400); Red Blood Count 4.21 X10*6/uL (4.20-5.50); White Blood Count 8.2 X10*3/uL (4.8-10.8)
[2025-08-08 14:35] LABS: Alanine Aminotransferase 19 U/L (0-31); Albumin Level 4.0 g/dL (3.5-5.0); Alkaline Phosphatase 68 U/L (39-117); Anion Gap 13 (12-20); Aspartate Amino Transferase 27 U/L (5-31); Blood Urea Nitrogen 25 mg/dL (9-16); Calcium 10.2 mg/dL (8.4-10.2); Carbon Dioxide 26 mmol/L (22-29); Chloride 108 mmol/L (96-108); Cholesterol 191 mg/dL (<200); Estimated Glomerular Filt Rate 40; HDL Cholesterol 56 mg/dL (>40); Potassium 3.8 mmol/L (3.3-5.1); Sodium 143 mmol/L (135-145); Total Protein 6.9 g/dL (6.5-8.0); Triglycerides 159 mg/dL (<150)
== END 2025-08-08 09:03 | disposition home or self-care (01) ==
LOC: HO.MANLDS 09:02
PROVIDERS: Visit Provider Physician Assistant
DX: Z00.00 Encounter for general adult medical examination without abnormal findings (principal); Z13.6 Encounter for screening for cardiovascular disorders
CPT/HCPCS: 36415; 80053; 80061; 85025